=== PATIENT | male | born 1965 | race Two or more races ===

== ENCOUNTER 2024-09-25 19:34 | Emergency (ER) | payer OTHER ==
[~2024-09-25] VITALS: Ht 170.2 cm; Wt 83.9 kg
[2024-09-25] MEDS ORDERED: ACETAMINOPHEN WITH CODEINE 1 UDTAB TABLET PO ONE (21:15)
[2024-09-25] MEDS ORDERED: MEPERIDINE HCL/PF 25 MG/ML VIAL IV ONE (22:30)
== END 2024-09-26 00:20 | disposition home or self-care (01) ==
LOC: ER 19:36
DX: S52.592A Other fractures of lower end of left radius, initial encounter for closed fracture (principal); W18.39XA Other fall on same level, initial encounter; Y93.89 Activity, other specified; Y92.89 Other specified places as the place of occurrence of the external cause; Y99.9 Unspecified external cause status

== ENCOUNTER → 2024-09-30 | Day surgery (SDC) | payer OTHER ==
[~2024-09-30] VITALS: Ht 170.2 cm; Wt 86.2 kg
[~2024-09-30] MED LIST: ALEVE220 M1 PO; BUPIVACAINE HCL 30 ML VIAL IJ ONE; CEFADROXIL500 MG PO; CEFAZOLIN SODIUM 1,000 MG VIAL IV ONE; ISOPROPYL ALCOHOL 30 ML OUNCE TOP ONE; MORPHINE SULFATE 4 MG/ML VIAL IV ONE; PERCOCET 5-3251 EACH PO; POVIDONE-IODINE 118 ML BOTT TOP ONE
[2024-09-30 09:23] VITALS: BP 160/90
[2024-09-30 09:24] LABS: HEMATOCRIT 40.9 % (39.0-48.0); HEMOGLOBIN 14.3 g/dL (13-16.00); MEAN CELL VOLUME 93.9 fL (80.0-100.00); MEAN CORPUSCULAR HEMOGLOBIN 32.8 pg (27.00-32.0); MEAN CORPUSCULAR HGB CONC 34.9 g/dl (32.0-36.0); PLATELET COUNT 197 K/uL (150-450); RED BLOOD COUNT 4.35 M/uL (4.00-6.00); RED CELL DISTRIBUTION WIDTH 12.5 % (11.5-14.5)
[2024-09-30 09:36] LABS: URINE APPEARANCE Clear; URINE BILIRRUBIN Negative (NEGATIVE); URINE BLOOD Negative; URINE COLOR Yellow; URINE GLUCOSE Negative (NEGATIVE); URINE KETONE Negative (NEGATIVE); URINE LEUKOCYTE Negative; URINE NITRATE Negative; URINE PROTEIN Negative (NEGATIVE); URINE UROBILINOGEN 0.2 E.U./dl
[2024-09-30 09:44] LABS: URINE EPITHELIAL CELLS 6.9 uL (0.0-38.8); URINE RBC 7.3 uL (0.0-20.8)
[2024-09-30 09:46] LABS: INR 1.01; PARTIAL THROMBOPLASTIN TIME 28.3 SECONDS (22.0-34.0)
[2024-09-30 10:01] LABS: URINE BACTERIA 3.6 uL (0.0-1933); URINE CAST 0.14 uL (0.0-1.40); URINE WBC 1.7 uL (0.0-23.2)
[2024-09-30 10:08] LABS: BILIRUBIN TOTAL 0.62 mg/dL (0.3-1.2); CALCIUM 8.8 mg/dL (8.5-10.1); CHOL HDL RATIO 3.5 (0-5.0); CREATININE SERUM 0.88 mg/dL (0.70-1.30); GFR 89.26; GLOBULINA 3.2 G/DL (2.4-3.5); POTASSIUM 4.41 mEq/L (3.5-5.1); TOTAL PROTEIN 7.2 gm/dL (6.4-8.2)
== END | disposition home or self-care (01) ==
LOC: CIR.AMB 08:10
PROVIDERS: ATTEND Orthopaedic Surgery
DX: S52.532A Colles' fracture of left radius, initial encounter for closed fracture (principal)
CPT/HCPCS: 25609; 20902; L8699